=== PATIENT | male | born 1950 | race Caucasian/White ===

== ENCOUNTER 2020-04-11 18:26 | Inpatient (IN) | payer MEDICARE, OTHER ==
[~2020-04-11] VITALS: Ht 180.3 cm; Wt 104.3 kg
[~2020-04-11 18:26] MED LIST: ECOTRIN81 MG PO; IMDUR ER TAB 3030 MG PO; LIPITOR TAB 2020 MG PO; LOPRESSOR 25 MG25 MG PO; PLAVIX75 MG PO; TOPROL XL25 MG PO
[2020-04-11 20:04] LABS: HEMOGLOBIN 15.8 gm/dl (14.0-17.5); RED BLOOD COUNT 4.73 M/UL (4.20-5.50); WHITE BLOOD COUNT 8.7 K/UL (4.5-11.0)
[2020-04-11 20:36] LABS: BUN/CREATININE RATIO 13 (0-10)
[2020-04-13 04:32] LABS: HEMOGLOBIN 14.1 gm/dl (14.0-17.5); RED BLOOD COUNT 4.32 M/UL (4.20-5.50)
[2020-04-13 04:37] LABS: WHITE BLOOD COUNT 13.1 K/UL (4.5-11.0)
[2020-04-13 05:02] LABS: BUN/CREATININE RATIO 24 (0-10)
[2020-04-14 04:44] LABS: HEMOGLOBIN 14.4 gm/dl (14.0-17.5); RED BLOOD COUNT 4.3 M/UL (4.20-5.50); WHITE BLOOD COUNT 11.7 K/UL (4.5-11.0)
[2020-04-14 05:12] LABS: BUN/CREATININE RATIO 25 (0-10)
[2020-04-15 06:28] LABS: HEMOGLOBIN 15.2 gm/dl (14.0-17.5); RED BLOOD COUNT 4.55 M/UL (4.20-5.50)
[2020-04-15 07:11] LABS: BUN/CREATININE RATIO 19 (0-10)
[2020-04-16 03:14] LABS: HEMOGLOBIN 14.3 gm/dl (14.0-17.5); RED BLOOD COUNT 4.27 M/UL (4.20-5.50); WHITE BLOOD COUNT 17.6 K/UL (4.5-11.0)
[2020-04-16 03:34] LABS: BUN/CREATININE RATIO 27 (0-10)
[2020-04-17 04:10] LABS: HEMOGLOBIN 15.1 gm/dl (14.0-17.5); RED BLOOD COUNT 4.5 M/UL (4.20-5.50); WHITE BLOOD COUNT 20.7 K/UL (4.5-11.0)
[2020-04-17 04:28] LABS: BUN/CREATININE RATIO 25 (0-10)
[2020-04-18 05:54] LABS: HEMOGLOBIN 15.3 gm/dl (14.0-17.5); RED BLOOD COUNT 4.56 M/UL (4.20-5.50); WHITE BLOOD COUNT 25.1 K/UL (4.5-11.0)
[2020-04-18 06:06] LABS: BUN/CREATININE RATIO 25 (0-10)
--- NOTE | 2020-04-18 11:23 | NUR ---
10:30 PT'S DAUGHTER HERE, PT CONTINUES TO STUGGLE BREATHING WITH BIPAP, DR ROBERTS CALLED, ORDERS REC'D TO CONSULT PULMONOLOGY AND TRANSFER TO ICU, GARRETT NOTIFIED, PEARL WAS NOTIFIED, PT WAS TRANSFERRED AT 11:10.
--- NOTE | 2020-04-18 12:37 | NUR ---
04/18/20 1000 DAUGHTER TOOK PATIENT BELONGINGS (PHONE AND RING)
[2020-04-19 03:54] LABS: HEMOGLOBIN 16.2 gm/dl (14.0-17.5); RED BLOOD COUNT 4.81 M/UL (4.20-5.50)
[2020-04-19 04:01] LABS: WHITE BLOOD COUNT 34.5 K/UL (4.5-11.0)
[2020-04-20 05:01] LABS: HEMOGLOBIN 14.4 gm/dl (14.0-17.5)
[2020-04-20 05:03] LABS: RED BLOOD COUNT 4.3 M/UL (4.20-5.50); WHITE BLOOD COUNT 31.8 K/UL (4.5-11.0)
[2020-04-21 07:33] LABS: RED BLOOD COUNT 4.09 M/UL (4.20-5.50); WHITE BLOOD COUNT 26.1 K/UL (4.5-11.0)
[2020-04-22 05:26] LABS: RED BLOOD COUNT 3.93 M/UL (4.20-5.50); WHITE BLOOD COUNT 20.3 K/UL (4.5-11.0)
[2020-04-23 05:05] LABS: HEMOGLOBIN 13.2 gm/dl (14.0-17.5); RED BLOOD COUNT 4.03 M/UL (4.20-5.50); WHITE BLOOD COUNT 23.8 K/UL (4.5-11.0)
[2020-04-23 06:02] LABS: BUN/CREATININE RATIO 47 (0-10)
[2020-04-24 05:06] LABS: HEMOGLOBIN 12.5 gm/dl (14.0-17.5); RED BLOOD COUNT 3.93 M/UL (4.20-5.50); WHITE BLOOD COUNT 26.9 K/UL (4.5-11.0)
[2020-04-25 05:38] LABS: HEMOGLOBIN 13.3 gm/dl (14.0-17.5); RED BLOOD COUNT 4.03 M/UL (4.20-5.50); WHITE BLOOD COUNT 23.6 K/UL (4.5-11.0)
[2020-04-26 07:10] LABS: HEMOGLOBIN 12.7 gm/dl (14.0-17.5); RED BLOOD COUNT 3.89 M/UL (4.20-5.50); WHITE BLOOD COUNT 22.3 K/UL (4.5-11.0)
[2020-04-27 06:05] LABS: HEMOGLOBIN 13.1 gm/dl (14.0-17.5); RED BLOOD COUNT 3.99 M/UL (4.20-5.50); WHITE BLOOD COUNT 22.4 K/UL (4.5-11.0)
[2020-04-27 06:18] LABS: BUN/CREATININE RATIO 62 (0-10)
[2020-04-28 05:03] LABS: HEMOGLOBIN 12.4 gm/dl (14.0-17.5); RED BLOOD COUNT 3.78 M/UL (4.20-5.50); WHITE BLOOD COUNT 16.9 K/UL (4.5-11.0)
[2020-04-28 05:41] LABS: BUN/CREATININE RATIO 55 (0-10)
[2020-04-29 05:06] LABS: HEMOGLOBIN 11.3 gm/dl (14.0-17.5); RED BLOOD COUNT 3.48 M/UL (4.20-5.50); WHITE BLOOD COUNT 12.8 K/UL (4.5-11.0)
[2020-04-29 05:42] LABS: BUN/CREATININE RATIO 62 (0-10)
[2020-04-30 05:56] LABS: HEMOGLOBIN 11.3 gm/dl (14.0-17.5); RED BLOOD COUNT 3.46 M/UL (4.20-5.50); WHITE BLOOD COUNT 13.5 K/UL (4.5-11.0)
[2020-04-30 06:13] LABS: BUN/CREATININE RATIO 61 (0-10)
[2020-05-01 05:07] LABS: HEMOGLOBIN 12.3 gm/dl (14.0-17.5); RED BLOOD COUNT 3.76 M/UL (4.20-5.50); WHITE BLOOD COUNT 13.6 K/UL (4.5-11.0)
[2020-05-01 05:44] LABS: BUN/CREATININE RATIO 63 (0-10)
[2020-05-02 04:55] LABS: HEMOGLOBIN 12.6 gm/dl (14.0-17.5); RED BLOOD COUNT 3.81 M/UL (4.20-5.50); WHITE BLOOD COUNT 13.6 K/UL (4.5-11.0)
[2020-05-02 05:18] LABS: BUN/CREATININE RATIO 58 (0-10)
[2020-05-03 04:45] LABS: HEMOGLOBIN 11.5 gm/dl (14.0-17.5); RED BLOOD COUNT 3.52 M/UL (4.20-5.50); WHITE BLOOD COUNT 11.9 K/UL (4.5-11.0)
[2020-05-03 05:04] LABS: BUN/CREATININE RATIO 60 (0-10)
[2020-05-04 07:20] LABS: HEMOGLOBIN 12.9 gm/dl (14.0-17.5)
[2020-05-04 07:21] LABS: RED BLOOD COUNT 3.93 M/UL (4.20-5.50)
[2020-05-04 07:49] LABS: BUN/CREATININE RATIO 63 (0-10)
[2020-05-05 04:02] LABS: HEMOGLOBIN 11.7 gm/dl (14.0-17.5); RED BLOOD COUNT 3.64 M/UL (4.20-5.50); WHITE BLOOD COUNT 12.9 K/UL (4.5-11.0)
[2020-05-05 04:38] LABS: BUN/CREATININE RATIO 52 (0-10)
[2020-05-06 04:01] LABS: HEMOGLOBIN 13.3 gm/dl (14.0-17.5); WHITE BLOOD COUNT 10.9 K/UL (4.5-11.0)
[2020-05-06 04:39] LABS: BUN/CREATININE RATIO 49 (0-10)
[2020-05-06 04:41] LABS: RED BLOOD COUNT 4.06 M/UL (4.20-5.50)
[2020-05-07 04:57] LABS: HEMOGLOBIN 12.3 gm/dl (14.0-17.5); RED BLOOD COUNT 3.81 M/UL (4.20-5.50); WHITE BLOOD COUNT 12.2 K/UL (4.5-11.0)
[2020-05-07 05:24] LABS: BUN/CREATININE RATIO 35 (0-10)
[2020-05-08 05:13] LABS: HEMOGLOBIN 11.6 gm/dl (14.0-17.5); RED BLOOD COUNT 3.63 M/UL (4.20-5.50); WHITE BLOOD COUNT 10.3 K/UL (4.5-11.0)
[2020-05-08 05:32] LABS: BUN/CREATININE RATIO 48 (0-10)
[2020-05-09 07:04] LABS: HEMOGLOBIN 11.5 gm/dl (14.0-17.5); RED BLOOD COUNT 3.59 M/UL (4.20-5.50); WHITE BLOOD COUNT 9.1 K/UL (4.5-11.0)
[2020-05-09 07:35] LABS: BUN/CREATININE RATIO 47 (0-10)
[2020-05-10 05:26] LABS: HEMOGLOBIN 12.1 gm/dl (14.0-17.5); RED BLOOD COUNT 3.78 M/UL (4.20-5.50)
[2020-05-10 06:00] LABS: BUN/CREATININE RATIO 60 (0-10)
[2020-05-11 05:19] LABS: BUN/CREATININE RATIO 14 (0-10)
[2020-05-12 05:13] LABS: BUN/CREATININE RATIO 55 (0-10)
[2020-05-13 04:37] LABS: RED BLOOD COUNT 3.72 M/UL (4.20-5.50)
[2020-05-13 04:44] LABS: WHITE BLOOD COUNT 16.7 K/UL (4.5-11.0)
[2020-05-13 04:55] LABS: BUN/CREATININE RATIO 59 (0-10)
[2020-05-14 05:17] LABS: HEMOGLOBIN 11.4 gm/dl (14.0-17.5); RED BLOOD COUNT 3.58 M/UL (4.20-5.50); WHITE BLOOD COUNT 12.7 K/UL (4.5-11.0)
[2020-05-14 05:58] LABS: BUN/CREATININE RATIO 64 (0-10)
[2020-05-15 05:40] LABS: HEMOGLOBIN 12.2 gm/dl (14.0-17.5); RED BLOOD COUNT 3.82 M/UL (4.20-5.50); WHITE BLOOD COUNT 15.6 K/UL (4.5-11.0)
[2020-05-15 06:12] LABS: BUN/CREATININE RATIO 58 (0-10)
[2020-05-16 05:45] LABS: HEMOGLOBIN 11.5 gm/dl (14.0-17.5); RED BLOOD COUNT 3.63 M/UL (4.20-5.50); WHITE BLOOD COUNT 14.9 K/UL (4.5-11.0)
[2020-05-16 05:58] LABS: BUN/CREATININE RATIO 62 (0-10)
[2020-05-17 05:38] LABS: HEMOGLOBIN 11.4 gm/dl (14.0-17.5); RED BLOOD COUNT 3.57 M/UL (4.20-5.50); WHITE BLOOD COUNT 16.6 K/UL (4.5-11.0)
[2020-05-17 06:14] LABS: BUN/CREATININE RATIO 72 (0-10)
[2020-05-18 03:18] LABS: HEMOGLOBIN 11.4 gm/dl (14.0-17.5); RED BLOOD COUNT 3.59 M/UL (4.20-5.50)
[2020-05-18 03:38] LABS: BUN/CREATININE RATIO 63 (0-10)
[2020-05-21 15:10] LABS: ADENOVIRUS F 40/41 Not Detected (Not Detected); ASTROVIRUS Not Detected (Not Detected); C DIFFICILE TOXIN A/B Not Detected (Not Detected); CAMPYLOBACTER Not Detected (Not Detected); CRYPTOSPORIDIUM Not Detected (Not Detected); CYCLOSPORA CAYETANENSIS Not Detected (Not Detected); ENTAMOEBA HISTOLYTICA Not Detected (Not Detected); ENTEROAGGREGATIVE E COLI Not Detected (Not Detected); ENTEROPATHOGENIC E COLI Not Detected (Not Detected); ENTEROTOXIGENIC E COLI Not Detected (Not Detected); GIARDIA LAMBLIA Not Detected (Not Detected); NOROVIRUS GI/GII Not Detected (Not Detected); PLESIOMONAS SHIGELLOIDES Not Detected (Not Detected); ROTAVIRUS A Not Detected (Not Detected); SALMONELLA Not Detected (Not Detected); SAPOVIRUS Not Detected (Not Detected); SHIGA-TOXIN-PRODUCING E COLI Not Detected (Not Detected); SHIGELLA/ENTEROINVASIVE E COLI Not Detected (Not Detected); VIBRIO Not Detected (Not Detected); VIBRIO CHOLERAE Not Detected (Not Detected); YERSINIA ENTEROCOLITICA Not Detected (Not Detected)
== END 2020-05-18 17:50 | disposition expired | DRG 4 ==
LOC: ER1 18:26 → PROG CARE 04-12 02:25 → CCU 04-12 02:25 → MED SURG 4 04-12 02:25 → CDU 04-12 02:25 → MED SURG 4 04-12 16:22 → PROG CARE 04-16 14:38 → CCU 04-18 10:17
PROVIDERS: Family Medicine; Hospitalist; Internal Medicine; Internal Medicine Pulmonary Disease; Physician Assistant; ADMIT Internal Medicine
PROC: 8E0ZXY6 Isolation (ICD-10-PCS; principal; 2020-04-12)
PROC: 5A1955Z Respiratory Ventilation, Greater than 96 Consecutive Hours (ICD-10-PCS; 2020-04-12)
PROC: XW033E5 Introduction of Remdesivir Anti-infective into Peripheral Vein, Percutaneous Approach, New Technology Group 5 (ICD-10-PCS; 2020-04-12)
PROC: XW13325 Transfusion of Convalescent Plasma (Nonautologous) into Peripheral Vein, Percutaneous Approach, New Technology Group 5 (ICD-10-PCS; 2020-04-13)
PROC: 0BH17EZ Insertion of Endotracheal Airway into Trachea, Via Natural or Artificial Opening (ICD-10-PCS; 2020-04-18)
PROC: 0B110F4 Bypass Trachea to Cutaneous with Tracheostomy Device, Open Approach (ICD-10-PCS; 2020-05-04)
PROC: 0DH63UZ Insertion of Feeding Device into Stomach, Percutaneous Approach (ICD-10-PCS; 2020-05-04)
PROC: 3E0G76Z Introduction of Nutritional Substance into Upper GI, Via Natural or Artificial Opening (ICD-10-PCS; 2020-05-04)
PROC: 0BJ08ZZ Inspection of Tracheobronchial Tree, Via Natural or Artificial Opening Endoscopic (ICD-10-PCS; 2020-05-04)
DX: A41.89 Other specified sepsis (principal); U07.1 COVID-19; J12.82 Pneumonia due to coronavirus disease 2019; J15.1 Pneumonia due to Pseudomonas; G93.41 Metabolic encephalopathy; J80 Acute respiratory distress syndrome; G92 Toxic encephalopathy; E87.0 Hyperosmolality and hypernatremia; R57.9 Shock, unspecified; T79.7XXA Traumatic subcutaneous emphysema, initial encounter; E78.5 Hyperlipidemia, unspecified; I25.10 Atherosclerotic heart disease of native coronary artery without angina pectoris; G47.33 Obstructive sleep apnea (adult) (pediatric); E66.9 Obesity, unspecified; Z68.23 Body mass index [BMI] 23.0-23.9, adult; Z95.5 Presence of coronary angioplasty implant and graft; Z90.49 Acquired absence of other specified parts of digestive tract; Z98.49 Cataract extraction status, unspecified eye; Z82.49 Family history of ischemic heart disease and other diseases of the circulatory system; E87.8 Other disorders of electrolyte and fluid balance, not elsewhere classified; E11.65 Type 2 diabetes mellitus with hyperglycemia; T38.0X5A Adverse effect of glucocorticoids and synthetic analogues, initial encounter; I12.9 Hypertensive chronic kidney disease with stage 1 through stage 4 chronic kidney disease, or unspecified chronic kidney disease; E11.22 Type 2 diabetes mellitus with diabetic chronic kidney disease; N18.30 Chronic kidney disease, stage 3 unspecified; Z51.5 Encounter for palliative care; Z66 Do not resuscitate; R51.9 Headache, unspecified; R00.1 Bradycardia, unspecified; K59.00 Constipation, unspecified; K21.9 Gastro-esophageal reflux disease without esophagitis; K44.9 Diaphragmatic hernia without obstruction or gangrene; T42.75XA Adverse effect of unspecified antiepileptic and sedative-hypnotic drugs, initial encounter; R00.0 Tachycardia, unspecified; K66.9 Disorder of peritoneum, unspecified; K13.70 Unspecified lesions of oral mucosa; L89.311 Pressure ulcer of right buttock, stage 1; L89.891 Pressure ulcer of other site, stage 1; L89.812 Pressure ulcer of head, stage 2
CPT/HCPCS: 31500; 36415; 36600; 70450; 70551; 71045; 74018; 80048; 80053; 80202; 80307; 81001; 82140; 82550; 82553; 82607; 82728; 82803; 82962; 83036; 83605; 83615; 83735; 83874; 83880; 84100; 84132; 84439; 84443; 84484; 85025; 85027; 85379; 85384; 85610; 85730; 86140; 86900; 86901; 86927; 87040; 87070; 87077; 87081; 87086; 87186; 87205; 87449; 87507; 87635; 93005; 93308; 94002; 94003; 94640; 94660; 94664; 94760; 95816; 96365; 96366; 96367; 96375; 99285; A6212; C1751; C1769; J0330; J0456; J0696; J0713; J1100; J1120; J1205; J1650; J1940; J2020; J2060; J2185; J2250; J2270; J2543; J2704; J3010; J3370; J7030; J7040; J7050; J7070; J7120; P9047; Q9967